=== PATIENT | female | born 1955 ===

== ENCOUNTER → 2023-03-11 | Outpatient (CLI) | payer OTHER | END | disposition home or self-care (01) | LOC: RX STUDY 08:36 | PROVIDERS: ATTEND Otolaryngology | DX: R10.13 Epigastric pain (principal) ==

== ENCOUNTER 2023-07-17 14:50 | Outpatient (CLI) | payer OTHER | END 2023-07-17 14:54 | disposition home or self-care (01) | LOC: RAD 14:50 | DX: M16.0 Bilateral primary osteoarthritis of hip (principal); M17.0 Bilateral primary osteoarthritis of knee; M18.0 Bilateral primary osteoarthritis of first carpometacarpal joints ==

== ENCOUNTER 2023-07-23 07:58 | Outpatient (CLI) | payer OTHER | END 2023-07-23 08:08 | disposition home or self-care (01) | LOC: SONOGRAMA 07:58 | DX: R10.13 Epigastric pain (principal) ==

== ENCOUNTER 2024-03-09 07:20 | Outpatient (CLI) | payer OTHER | END 2024-03-09 07:30 | disposition home or self-care (01) | LOC: TOM 07:20 | DX: R10.30 Lower abdominal pain, unspecified (principal); K57.92 Diverticulitis of intestine, part unspecified, without perforation or abscess without bleeding; R19.7 Diarrhea, unspecified; K57.32 Diverticulitis of large intestine without perforation or abscess without bleeding; K57.30 Diverticulosis of large intestine without perforation or abscess without bleeding | CPT/HCPCS: 74178; Q9965 ==